=== PATIENT | female | born 1955 | race Caucasian/White ===

== ENCOUNTER 2022-03-06 15:37 | Inpatient (IN) ==
[2022-03-06] MEDS ORDERED: IOPAMIDOL 100 ML BOTTLE IV ONE (15:38)
[2022-03-06] MEDS ORDERED: ACETAMINOPHEN 325 MG TABLET PO ONE (15:49)
[2022-03-06 16:05] LABS: POC Calcium, Ionized 1.02 (1.16-1.32); POC Creatinine 0.6 (0.6-1.2)
[2022-03-06] MEDS ORDERED: morphine 4 MG/ML VIAL IV ONE (16:07)
[2022-03-06] MEDS ORDERED: 0.9 % SODIUM CHLORIDE 1,000 ML IV ONE (16:08)
[2022-03-06] MEDS ORDERED: ONDANSETRON 4 MG/2 ML VIAL IV ONE (16:12)
[2022-03-06] MEDS ORDERED: ONDANSETRON 4 MG/2 ML VIAL ONE (16:24)
[2022-03-06 16:45] LABS: Hematocrit 40.4 % (34.1-44.9); Hemoglobin 13.5 g/dL (11.2-15.7); Mean Cell Volume 88.6 fL (80.0-100.0); Mean Corpuscular HGB Conc 33.4 g/dL (31.0-36.0); Mean Platelet Volume 10.4 fL (7.4-10.4); Platelet Count 170 K/mcL (140-440); RBC 4.56 M/mcL (3.59-5.38); Red Cell Distribution Width 12.2 % (11.5-14.5); WBC 8.2 K/mcL (4.5-11.0)
[2022-03-06 17:17] LABS: Basophils % (Manual) 2 % (0-2); Lymphocytes % 18 % (15-49); Monocytes % (Manual) 6 % (1-12); Platelet Estimate NORMAL (Normal); RBC Morphology NORMAL (Normal); Segmented Neutrophils % 74 % (38-78)
--- NOTE | 2022-03-06 17:19 | Emergency Department Note ---
Chest Pain HPI General Chief Complaint: Chest Pain Stated Complaint: fall Time Seen by Provider: 03/06/22 15:44 Source: patient Mode of arrival: ambulatory History of Present Illness HPI Narrative: 66-year-old female with a history of T2DM and radiculoplexus neuropathy presents with acute onset chest pain and unwitnessed syncopal event that occurred at 11:00 this morning. She states she was in her usual state of health and was kneeling forward and passed out. She is unclear if she hit her head, but now has a headache. She also endorses some upper thoracic back pain and some low bilateral lumbar back pain. She has never had a syncopal event. She has no history of heart disease. She does have type 2 diabetes with poor control. [id number] blood glucose is 412. Related Data Home Medications Medication Instructions Recorded Confirmed baclofen 10 mg tablet 1 tab PO TID 03/06/22 03/06/22 duloxetine 60 mg capsule,delayed 1 cap PO QDAY 03/06/22 03/06/22 release gabapentin 300 mg capsule 300 mg PO TID 03/06/22 03/06/22 hydrocodone 10 mg-acetaminophen 1 tab PO 5XD 03/06/22 03/06/22 325 mg tablet insulin aspart U-100 100 unit/mL 10 unit subcut TID 03/06/22 03/06/22 (3 mL) subcutaneous pen (Novolog Flexpen U-100 Insulin aspart) insulin detemir U-100 100 unit/mL 80 unit subcut HS 03/06/22 03/06/22 (3 mL) subcutaneous pen (Levemir FlexTouch U-100 Insulin) losartan 50 mg tablet 1 tab PO QDAY 03/06/22 03/06/22 pravastatin 20 mg tablet 1 tab PO HS 03/06/22 03/06/22 tramadol 50 mg tablet 1 tab PO TIDP 03/06/22 03/06/22 Allergies Allergy/AdvReac Type Severity Reaction Status Date / Time codeine Allergy Unknown Unknown Verified 03/06/22 15:41 Review of Systems ROS ROS Narrative: Narrative: All systems ED: reviewed and negative except as stated. 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) Chronic pain (Chronic) Encounter for medication refill (Chronic) Laceration (Chronic) Medical History Asthma Benign essential hypertension Chronic pain Diabetes mellitus Encounter for medication refill Laceration Lymphedema Pain in lower limb 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 Pleasant and conversant. HEENT: PERRL, EOMI, normocephalic. Dry mucous membranes. Normal facies and normal dentition. Chest: Symmetric, she is painful to palpation of the anterior left chest. Back: Tender to palpation of the mid thoracic spine and paraspinals. Respiratory: Lungs clear to auscultation bilaterally. No respiratory distress. Unlabored breathing. Heart: Regular rate and rhythm, no murmurs/clicks/rubs. Abdomen: Non-tender, Non distended, normal bowel tones. No organomegaly. Extremities: Warm and well perfused. No edema. DP 2+ bilaterally. No venous stasis. Neuro: No focal deficits. Cranial nerves II-XII grossly normal. Skin: Warm dry, no rashes or lesions, no cyanosis. Psych: Normal mood and affect Heme/Lymph: No abnormal bruising Course Course Course Narrative: 66-year-old female presents for syncopal event and acute onset chest pain Reevaluation(s) Reevaluation #1: Obtain EKG, troponin, basic labs, CTA of the chest to rule out PE or dissection Reevaluation #2: EKG shows normal sinus rhythm no acute ST segment deviations to suggest an ischemia. QTC is 423 ms. POC troponin is undetectable CTA of the chest is negative for PE or dissection. No infiltrates. Right lower lobe bronchitis is noted. No evidence of compression fractures of the thoracic or lower cervical spine. Labs are unremarkable Reevaluation #3: Patient is now noted to be hypoxic with 84% oxygen saturations on room air. This corrects to 95% with 2 L nasal cannula. This is a new oxygen requirement for her. The patient takes her pain medications for her neuropathy 4 times a day. We will give her hydrocodone and gabapentin now. Given the patient's new oxygen requirement she will likely need admission for further evaluation management, and treatment for her COVID-19 infection. Vital Signs Vital signs: Vital Signs Temperature 99.4 F H 03/06/22 15:39 Pulse Rate 87 03/06/22 15:39 Respiratory Rate 16 03/06/22 15:39 Blood Pressure 170/73 03/06/22 15:39 Oxygen Delivery Method 03/06/22 15:39 Temperature 99.4 F H 03/06/22 15:39 Pulse Rate 76 03/06/22 18:35 Respiratory Rate 23 H 03/06/22 18:35 Blood Pressure 151/67 03/06/22 17:32 Pulse Oximetry (%) 97 03/06/22 18:35 Oxygen Delivery Method 03/06/22 17:57 Oxygen Flow Rate (L/min) 2 03/06/22 17:57 [facility] MDM Narrative Medical decision making narrative: COVID-19 infection Hypoxia with new oxygen requirement CT of the chest was negative for acute pathology. Patient had no evidence of thoracic compression fractures. Pain is improved with intramuscular Toradol. Patient continues to be hypoxic requiring 2 L via nasal cannula to keep her sats greater than 92%. I reached out to the hospitalist who has accepted the patient for admission. Lab Data Result diagrams: 03/06/22 15:58 Labs: Lab Results 03/06/22 03/06/22 03/06/22 Range/Units 15:58 16:02 16:04 WBC 8.2 (4.5-11.0) K/mcL RBC 4.56 (3.59-5.38) M/mcL Hgb 13.5 (11.2-15.7) g/dL Hct 40.4 (34.1-44.9) % POC Hct 41.0 (36-48) MCV 88.6 (80.0-100.0) fL MCH 29.6 (26.0-34.0) pg MCHC 33.4 (31.0-36.0) g/dL RDW 12.2 (11.5-14.5) % Plt Count 170 (140-440) K/mcL MPV 10.4 (7.4-10.4) fL Seg Neutrophils % 74 (38-78) % Lymphocytes % 18 (15-49) % Monocytes % (Manual) 6 (1-12) % Basophils % (Manual) 2 (0-2) % Platelet Estimate Normal (Normal) RBC Morphology Normal (Normal) POC Sodium 131 L (133-145) POC Potassium 4.0 (3.3-5.1) POC Chloride 92 L (96-108) POC Total CO2 29.0 (22-30) POC BUN 13 (6-20) POC Creatinine 0.6 (0.6-1.2) POC Glucose 412 H (70-105) POC WB Ioniz Calcium 1.02 L (1.16-1.32) POC Troponin I 0 L (0.02-0.08) ED POC Tests ED POC Tests: [place] - SARS Antigen Positive Discharge Plan Patient/Caregiver Discharge Instructions Pt seen by ARMATURE WINDER/PA only: Yes Clinical Impression: COVID-19 virus infection, Hypoxia Patient Disposition: Xfer As Inpt ([facility]) Condition: Fair Follow up with: Maykel Colón [Primary Care Provider] - Prescriptions: No Action hydrocodone-acetaminophen 10-325 mg tablet 1 tab PO 5XD tramadol 50 mg tablet 1 tab PO TIDP baclofen 10 mg tablet 1 tab PO TID gabapentin 300 mg capsule 300 mg PO TID pravastatin 20 mg tablet 1 tab PO HS insulin aspart U-100 [Novolog Flexpen U-100 Insulin] 100 unit/mL (3 mL) ins ulin pen 10 unit subcut TID duloxetine 60 mg capsule,delayed release(DR/EC) 1 cap PO QDAY Levemir FlexTouch U-100 Insuln 100 unit/mL (3 mL) insulin pen 80 unit subcut HS losartan 50 mg tablet 1 tab PO QDAY
--- NOTE | 2022-03-06 17:26 | Cat Scan Report ---
History: Fell on chest injury, evaluate for aortic dissection TECHNIQUE: Following injection of intravenous nonionic contrast the patient was imaged during the arterial phase from the thoracic inlet through the iliac crest. Sagittal, coronal and axial MIPS images were created. The radiation exposure was limited using dose reduction technology. FINDINGS: Patient has a goiter. This had been evaluated by ultrasound on 03/19/19 and has not grossly changed. The aorta is normal in caliber. There is no aneurysm or dissection. There is minimal plaque formation in the aortic arch. There are couple small calcifications in left anterior descending coronary artery. Pulmonary artery is normal with no emboli or dilatation. The heart is normal in size and contour. No pneumothorax, pleural or pericardial effusion are present. There are small linear bands of scar or discoid atelectasis in both lung bases. The lungs are otherwise clear. There is no emphysema. Moderate bronchial wall thickening is present in the basilar segments of the right lower lobe. No endobronchial lesion is seen. There is a 1.2 x 1.5 cm lymph node in the pretracheal retrocaval space. This is nonspecific. Small lymph nodes measuring less than 7 mm are present in the right hilum. The common hepatic duct and proximal common bile duct are dilated measuring up to 1.4 cm. The gallbladder is outside of the field of view and I cannot determine whether or not the patient still has a gallbladder. There is a bulbous configuration of the left lobe of liver. The visualized portion of the liver is relatively homogeneous. Bone windows show no fracture. There is arthritis in the cervical and thoracic spine. IMPRESSION: No evidence of acute chest injury Normal aorta and pulmonary arteries Bronchitis in the right lower lobe Dilated extrahepatic bile ducts Deirdre Cox was called with the report Interpreted and Authenticated by: Rafael Jones 03/06/22
[2022-03-06] MEDS ORDERED: KETOROLAC 30 MG/ML VIAL IV ONE (17:29)
--- NOTE | 2022-03-06 17:43 | XRay Report ---
HISTORY: Fell, chest pain FINDINGS: The lungs are clear and well-expanded. No pneumothorax or pleural effusion are present. Heart size is normal. Aorta is moderate mildly tortuous. There is no evidence of mediastinal hemorrhage. No fracture is detected. There are clips in the left axilla. Comparison with the prior x-ray done on 08/16/21 shows no change. IMPRESSION: Normal exam Interpreted and Authenticated by: Rafael Jones 03/06/22
--- NOTE | 2022-03-06 18:12 | EKG ---
[facility] Test Date: 2022-03-06 Pat Name: Aria Kaur Department: ED Room: Gender: Female [employer]: HS : 1955 Requested By: Miguel A Mcarthur Order Number: [id number] Reading MD: Rubens Monson Measurements Intervals [place] Rate: 82 P: 41 SD: 194 QRS: 71 QRSD: 100 T: 32 QT: 362 QTc: 423 Interpretive Statements Sinus rhythm Probable left atrial enlargement Borderline low voltage, extremity leads Abnormal R-wave progression, late transition Electronically Signed On 03-06-2022 18:12:03 PDT by Rubens Monson /store/M0/[id number].pdf
[2022-03-06] MEDS ORDERED: HYDROcodone/APAP 10/325MG TABLET PO ONE (18:20)
[2022-03-06] MEDS ORDERED: GABAPENTIN 300 MG CAPSULE PO ONE ×2 (18:21→22:56)
--- NOTE | 2022-03-06 18:27 | Cat Scan Report ---
History: Syncope, fell, hit head, headache TECHNIQUE: The brain was imaged without contrast in axial plane at 2.5 mm intervals. Sagittal and coronal reformats were created. The radiation exposure was limited using dose reduction technology. There is contrast in the vessels following the preceding chest CT with contrast. There is mild frontal lobe atrophy. There is no intracranial hemorrhage, infarct, edema or mass. There is a prominent CSF filled perivascular lacunar space along the inferior border of the right basal ganglia. There is mild frontal lobe atrophy. No abnormal extra-axial fluid collection is present. The bone windows show no skull fracture. Mild mucosal thickening is seen along the riley of a few ethmoid air cells. IMPRESSION: Normal age-related degenerative changes and no acute head injury Deirdre Cox was called with report Interpreted and Authenticated by: Rafael Jones 03/06/22
[2022-03-06] MEDS ORDERED: INSULIN REGULAR, HUMAN 1 UNIT/0.01 ML UNIT SQ ONE (19:05)
--- NOTE | 2022-03-06 19:40 | Internal Med History&Physical ---
HPI History of Present Illness Patient information: Note initiated : 03/06/22 at 7:32 pm Service Date, if different from initiated Date: [] Patient: Aria Kaur a 66 y/o F admitted on for fall. Chief Complaint: [syncope] Chief complaint: syncope History of present illness: Ms. Kaur is a 66 year old F history of type 2 diabetes with radiculoplexus neuropathy, essential hypertensions, presenting with syncope. Last prior similar episode 2 years ago. Earlier today patient lost consciousness and fell when she was trying to walk between kitchen and living room. She then woke up by herself and call EMS to be sent to ER for further evaluations. When she woke up, she have experienced excruciating sharp constant substernal pain that radiates to her back. She is also complaining of shortness of breath in the pas t 4 days. She is complain of nonproductive cough. She is also complained of respiratory wheezings. She is having subjective fever chills and diaphoresis. She is having general weakness. Vital signs significant for oxygen desaturating to 80s on room air. She tested positive for COVID-pneumonia. Her blood sugar was also found to be elevated to 412 without acidosis or elevated anion gap. She was vaccinated x3 against COVID-pneumonia. Admission request was called for COVID-pneumonia as well as glycemia associated with type 2 diabetes. Constitutional Constitutional: Present fatigue and weakness; Absent chills, excessive sweating or fever(s) EENT Eyes: Absent blurry vision, change in vision, loss of vision or other visual disturbances Ears: Absent decreased hearing or tinnitus Nose, mouth and throat: Absent abnormal hearing, dry mouth, headache(s), nasal congestion or sore throat Cardiovascular Cardiovascular: Present chest pain; Absent chest pain at rest, edema, irregular heart rhythm or palpatations Respiratory Respiratory: Present cough, dyspnea and wheezing; Absent excessive phlegm production Gastrointestinal Gastrointestinal: Absent abdominal pain, constipation, diarrhea, nausea or vomiting Musculoskeletal Musculoskeletal: Absent back pain, deformity, limited range of motion, muscle cramps, muscle weakness or numbness Integumentary Integumentary: Absent lesions, rash or wounds Neurological Neurological: Absent focal weakness, headache(s) or numbness Psychiatric Psychiatric: Absent anxiety, depression or hallucinations PFSH PFSH All Active Problems (Updated 03/06/22 @ 19:42 by Henry Laboy MD) Syncope and collapse (Acute) Pneumonia due to COVID-19 virus (Acute) Hyperglycemia due to type 2 diabetes mellitus (Acute) Pain in lower limb (Chronic) Asthma (Chronic) Diabetes mellitus (Chronic) Benign essential hypertension (Chronic) Lymphedema (Chronic) 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) Chronic pain (Chronic) Encounter for medication refill (Chronic) Laceration (Chronic) Medical History Asthma Benign essential hypertension Chronic pain Diabetes mellitus Encounter for medication refill Laceration Lymphedema Pain in lower limb 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 Surgical History History of bilateral mastectomy Prophylactic History of hysterectomy Family History Family/Other Malignant neoplasm of liver Malignant carcinoid tumor of lung History of malignant neoplasm of kidney Social History (Updated 07/05/21 @ 14:51 by [place] Jose) marital status: unknown smoking status: Current every day smoker alcohol intake frequency: does not drink substance use type: does not use MEDS/ALLERGIES Home Medications and Allergies Home Medications Medication Instructions Recorded Confirmed Type baclofen 10 mg tablet 1 tab PO TID 03/06/22 03/06/22 History duloxetine 60 mg capsule,delayed 1 cap PO QDAY 03/06/22 03/06/22 History release gabapentin 300 mg capsule 300 mg PO TID 03/06/22 03/06/22 History hydrocodone 10 mg-acetaminophen 1 tab PO 5XD 03/06/22 03/06/22 History 325 mg tablet insulin aspart U-100 100 unit/mL 10 unit subcut TID 03/06/22 03/06/22 History (3 mL) subcutaneous pen (Novolog Flexpen U-100 Insulin aspart) insulin detemir U-100 100 unit/mL 80 unit subcut HS 03/06/22 03/06/22 History (3 mL) subcutaneous pen (Levemir FlexTouch U-100 Insulin) losartan 50 mg tablet 1 tab PO QDAY 03/06/22 03/06/22 History pravastatin 20 mg tablet 1 tab PO HS 03/06/22 03/06/22 History tramadol 50 mg tablet 1 tab PO TIDP 03/06/22 03/06/22 History Allergies Allergy/AdvReac Type Severity Reaction Status Date / Time codeine Allergy Unknown Unknown Verified 03/06/22 15:41 EXAM Constitutional Vitals: Temp Pulse Resp BP Pulse Ox O2 Del Method O2 Flow Rate 37.4 C H 76 23 H 151/67 97 2 03/06/22 15:39 03/06/22 18:35 03/06/22 18:35 03/06/22 17:32 03/06/22 18:35 03/06/22 17:57 03/06/22 17:57 General appearance: cooperative and no acute distress Head Head exam: Present atraumatic and normocephalic Eye Eye exam: Present EOMI and PERRL ENT ENT exam: Present mucous membranes moist, normal exam and normal external ear exam Additional comments: Nasal cannula in place Neck Neck exam: Present normal inspection; Absent lymphadenopathy, tenderness or thyromegaly Respiratory Respiratory exam: Absent accessory muscle use, respiratory distress or wheezes Cardiovascular Cardiovascular exam: Present normal rate and rhythm; Absent JVD GI/Abdominal GI/Abdominal exam: Present normal bowel sounds and soft; Absent organomegaly or tenderness Extremities Exam Extremities exam: Present full ROM, normal capillary refill and normal inspection; Absent tenderness Neurological Exam Neurological exam: Present alert, CN II-XII intact and oriented X3; Absent motor sensory deficit Psychiatric Psychiatric exam: Present normal affect and normal mood; Absent anxious or depressed Skin Skin exam: Present dry and intact DATA Data Completed and Pending Labs: Labs from last 24 hours 03/06/22 03/06/22 03/06/22 16:04 16:02 15:58 WBC 8.2 RBC 4.56 Hgb 13.5 Hct 40.4 POC Hct 41.0 MCV 88.6 MCH 29.6 MCHC 33.4 RDW 12.2 Plt Count 170 MPV 10.4 Seg Neutrophils % 74 Lymphocytes % 18 Monocytes % (Manual) 6 Basophils % (Manual) 2 Platelet Estimate Normal RBC Morphology Normal POC Sodium 131 L POC Potassium 4.0 POC Chloride 92 L POC Total CO2 29.0 POC BUN 13 POC Creatinine 0.6 POC Glucose 412 H POC WB Ioniz Calcium 1.02 L POC Troponin I 0 L A/P Assessment and plan (1) Hyperglycemia due to type 2 diabetes mellitus: Status: Acute (2) Benign essential hypertension: Status: Chronic (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 CoVID pneumonia: Inpatient med surg telemetry Isolation: airborne and contact Supplemental oxygen titrate to achieve spo2>=92% Remdesivir Dexamethasone Tylenol DuoNEB Robitussin DM Blood culture Inflammatory markers cbc w/ auto diff in the morning to trend WBC 2. Hyperglycemia with T2DM with radiculopathy: HgA1c Lantus 80 unit HS Novolog 10 unit TID AC SSI AC HS Accu Chek AC HS Hypoglycemia protocol Diabetic diet Gabapentin [place] Tramadol 3. Syncope: Likely secondary to #1 and #2, treat those respectively, see above Physical therapy Occupational therapy 4. Essential hypertension: Losartan GI ppx: not currently indicated DVT ppx: Lovenox Code status: Full Prognosis: guarded Disposition: Inpatient med surg telemetry; PT OT Time Spent With Patient Time: Total time spent is greater than 50% in coordination of care (as documented) at patient's floor/unit and/or counseling patient: Total time spent with greater than 50% in coordination of care (as documented) at patient's floor/unit and/or counseling patient:: 50 - 70 minutes
[2022-03-06] MEDS ORDERED: traMADol 50 MG TABLET PO PRN (19:48)
[2022-03-06] MEDS ORDERED: HYDROcodone/APAP 10/325MG TABLET PO SCH (20:00)
[2022-03-06] MEDS ORDERED: ACETAMINOPHEN 325 MG TABLET PO PRN (20:33)
[2022-03-06] MEDS ORDERED: ONDANSETRON 4 MG/2 ML VIAL IV PRN (20:33)
[2022-03-06] MEDS ORDERED: guaiFENesin/DEXTROMETHORPHAN ORAL SOL PO PRN (20:33)
[2022-03-06] MEDS ORDERED: DEXTROSE 31 GM ORAL.SUSP PO PRN (20:33)
[2022-03-06] MEDS ORDERED: IPRATROPIUM/ALBUTEROL 3 ML AMPUL.NEB NEB PRN (20:33)
[2022-03-06] MEDS ORDERED: DEXTROSE 50% 50 ML VIAL IV PRN (20:33)
[2022-03-06] MEDS ORDERED: hydrALAZINE 20 MG/ML VIAL IV PRN (20:33)
[2022-03-06] MEDS ORDERED: traZODone HCL 50 MG TABLET PO PRN (20:33)
[2022-03-06] MEDS ORDERED: GABAPENTIN 300 MG CAPSULE PO SCH (21:00)
[2022-03-06] MEDS: DOCUSATE SODIUM 100 MG CAPSULE PO SCH ×2 (21:00→22:10)
[2022-03-06] MEDS: SENNOSIDES 1 TABLET PO SCH ×2 (21:00→22:09)
[2022-03-06] MEDS ORDERED: REMDESIVIR 200 MG in 0.9 % SODIUM CHLORIDE 250 ML IV SCH (21:00)
[2022-03-06] MEDS: GABAPENTIN 300 MG CAPSULE PO SCH ×2 (21:00→22:55)
[2022-03-06] MEDS ORDERED: DEXAMETHASONE 4 MG TABLET PO SCH (21:10)
[2022-03-06] MEDS: 0.9 % SODIUM CHLORIDE 1,000 ML IV SCH (21:14)
[2022-03-06] MEDS: 0.9 % SODIUM CHLORIDE 10 ML SYRINGE IV SCH (21:15)
[2022-03-06] MEDS: INSULIN LISPRO 1 UNIT/0.01 ML UNIT SQ SCH (21:16)
[2022-03-06] MEDS: INSULIN GLARGINE, HUMAN 1 UNIT/0.01 ML SQ SCH (21:16)
[2022-03-06 21:19] LABS: Lactate Dehydrogenase 265 U/L (135-225)
[2022-03-06 21:29] LABS: INR 1.1 (0.9-1.1); Prothrombin Time 14.4 sec (11.9-14.5)
[2022-03-06 21:30] LABS: Ferritin 243.8 ng/mL (30.0-400.0)
[2022-03-06] MEDS: BACLOFEN 10 MG TABLET PO SCH (22:10)
[2022-03-06] MEDS: ATORVASTATIN 10 MG TABLET PO SCH (22:10)
[2022-03-06 22:19] LABS: Estimated Average Glucose(eAG) 346 mg/dL; Hemoglobin A1C 13.7 % Hgb (4.0-6.0)
[2022-03-06] MEDS ORDERED: GABAPENTIN 300 MG CAPSULE ONE (23:02)
[2022-03-07] MEDS ORDERED: HYDROcodone/APAP 10/325MG TABLET PO ONE (03:36)
[2022-03-07] MEDS: HYDROcodone/APAP 10/325MG TABLET PO SCH ×5 (03:44→23:58)
[2022-03-07] MEDS: 0.9 % SODIUM CHLORIDE 10 ML SYRINGE IV SCH ×3 (04:09→20:27)
[2022-03-07 06:58] LABS: Basophils # (Auto) 0.02 K/mcL (0.00-0.30); Basophils % (Auto) 0.4 % (0.0-2.0); Eosinophils # (Auto) 0.01 K/mcL (0.00-0.70); Eosinophils % (Auto) 0.2 % (0.0-7.0); Hematocrit 35.8 % (34.1-44.9); Hemoglobin 11.6 g/dL (11.2-15.7); Lymphocytes # (Auto) 1.21 K/mcL (1.50-4.80); Lymphocytes % (Auto) 21.6 % (15.5-49.0); Mean Cell Volume 91.6 fL (80.0-100.0); Mean Corpuscular HGB Conc 32.4 g/dL (31.0-36.0); Mean Platelet Volume 10.1 fL (7.4-10.4); Monocytes % (Auto) 5.3 % (1.0-12.0); Platelet Count 149 K/mcL (140-440); RBC 3.91 M/mcL (3.59-5.38); Red Cell Distribution Width 12.2 % (11.5-14.5); WBC 5.6 K/mcL (4.5-11.0)
[2022-03-07 07:23] LABS: ALT/SGPT 32 U/L (<40); AST/SGOT 32 U/L (<32); Albumin 3.3 gm/dL (3.2-5.2); Albumin/Globulin Ratio 1.2 (1.0-2.3); Alkaline Phosphatase 60 U/L (39-117); Bilirubin,Total 0.2 mg/dL (0.1-1.0); Blood Urea Nitrogen 19 mg/dL (8-23); Calcium 7.7 mg/dL (8.6-10.4); Carbon Dioxide 24 mmol/L (22-30); Chloride 95 mmol/L (96-108); Globulin 2.7 gm/dL (2.2-3.7); Glomerular Filtration Rate 89; Glucose 346 mg/dL (70-105); Phosphorous 3.5 mg/dL (2.5-4.5)
[2022-03-07] MEDS: INSULIN LISPRO 1 UNIT/0.01 ML UNIT SQ SCH ×7 (08:22→20:33)
[2022-03-07] MEDS: ENOXAPARIN 40 MG/0.4 ML SYRINGE SQ SCH (08:23)
[2022-03-07] MEDS: BACLOFEN 10 MG TABLET PO SCH ×3 (08:24→20:29)
[2022-03-07] MEDS: DULoxetine 30 MG CAPSULE PO SCH (08:24)
[2022-03-07] MEDS: traMADol 50 MG TABLET PO SCH ×3 (08:25→20:29)
[2022-03-07] MEDS: DEXAMETHASONE 4 MG TABLET PO SCH (08:26)
[2022-03-07] MEDS: LOSARTAN 50 MG TABLET PO SCH (08:26)
[2022-03-07] MEDS: GABAPENTIN 300 MG CAPSULE PO SCH ×4 (08:26→20:29)
[2022-03-07] MEDS: DOCUSATE SODIUM 100 MG CAPSULE PO SCH ×2 (08:26→20:26)
[2022-03-07] MEDS ORDERED: DEXTROSE 31 GM ORAL.SUSP PO PRN (09:11)
[2022-03-07] MEDS ORDERED: DEXTROSE 50% 50 ML VIAL IV PRN (09:11)
--- NOTE | 2022-03-07 09:11 | Internal Med Progress Note ---
SUBJECTIVE Subjective Patient information: Note initiated : 03/07/22 at 9:08 am Service Date, if different from initiated Date: [] Patient: Aria Kaur a 66 y/o F admitted on 03/06/22 for fall. Chief Complaint: [] Interval history: Ms. Kaur is a 66 year old F history of type 2 diabetes with radiculoplexus neuropathy, essential hypertensions, presenting with syncope. Last prior similar episode 2 years ago. Earlier today patient lost consciousness and fell when she was trying to walk between kitchen and living room. She then woke up by herself and call EMS to be sent to ER for further evaluations. When she woke up, she have experienced excruciating sharp constant substernal pain that radiates to her back. She is also complaining of shortness of breath in the past 4 days. She is complain of nonproductive cough. She is also complained of respiratory wheezings. She is having subjective fever chills and diaphoresis. She is having general weakness. Vital signs significant for oxygen desaturating to 80s on room air. She tested positive for COVID-pneumonia. Her blood sugar was also found to be elevated to 412 without acidosis or elevated anion gap. She was vaccinated x3 against COVID-pneumonia. Admission request was called for COVID-pneumonia as well as glycemia associated with type 2 diabetes. 8: Afebrile overnight. Patient is still on 2 L/min of supplemental oxygen. Fasting sugar 346 this morning. Cultures no growth today. Patient is still committing of same degree of shortness of breath. She is coming of nonproductive cough. She is complaining of wheezings. She is coming of diaphoresis. Denies fever or chills. She is coming of general body weakness. Continue supplemental oxygen's, remdesivir, dexamethasone for COVID-pneumonia. Continue aggressive insulin therapy for hyperglycemia associated with type 2 diabetes. Continue physical therapy and occupational therapy evaluation and treatments. Constitutional Vitals: Vital Signs Temp Pulse Resp BP Pulse Ox O2 Del Method O2 Flow Rate 36.9 C 66 20 147/80 92 2 03/07/22 08:00 03/07/22 08:00 03/07/22 08:00 03/07/22 08:00 03/07/22 08:00 03/07/22 08:00 03/07/22 08:00 Period Temp Pulse Resp BP Sys/Meléndez Pulse Ox O2 Del Method O2 Flow Rate Last 24 Hr 36.6 C-37.4 C 66-87 16-25 95-170/62-92 90-97 Nasal Cannula- Room Air 2-84 Intake and Output 03/06/22 03/07/22 03/07/22 21:59 05:59 13:59 Intake Total 730 1000 Output Total 150 400 Balance 580 600 Weight 84.822 kg Intake & Output: Intake & Output 03/06/22 03/07/22 03/07/22 21:59 05:59 13:59 Intake Total 730 1000 Output Total 150 400 Balance 580 600 Weight 84.822 kg Intake: IV 250 1000 Sodium Chloride 0.9% 1,000 ml @ 1000 Wide Open IV [facility] Rx#: [id number] Veklury 200 mg In Sodium 250 Chloride 0.9% 250 ml @ 500 mls/ hr IV 2100 JOANNE Rx#:[id number] Oral 480 Output: Void Amount 150 400 Other: Urine Appearance Clear Urine Color Bright Yellow Dark Yellow Urine Odor Normal Strong # Voids 1 Head Head exam: Present atraumatic and normal inspection Eye Eye exam: Present normal appearance ENT ENT exam: Present mucous membranes moist, normal exam and normal external ear exam Additional comments: Nasal cannula in place Neck Neck exam: Present normal inspection Respiratory Respiratory exam: Present normal respiratory exam Cardiovascular Cardiovascular exam: Present normal rate and rhythm GI/Abdominal GI/Abdominal exam: Present normal bowel sounds Back Exam Back exam: Present normal inspection Neurological Exam Neurological exam: Present alert and oriented X3 Skin Skin exam: Present intact and warm OBJ DATA Labs CBC & Chem 7: 03/07/22 06:21 03/07/22 06:21 Labs: Abnormal Lab Results 03/07/22 03/07/22 03/06/22 06:21 06:21 16:04 Lymph # (Auto) 1.21 L POC Sodium Sodium 129 L POC Chloride Chloride 95 L Glucose 346 H POC Glucose Hemoglobin A1c Calcium 7.7 L POC WB Ioniz Calcium AST 32 H Lactate Dehydrogenase C-Reactive Protein Procalcitonin POC Troponin I 0 L 03/06/22 03/06/22 03/06/22 16:02 15:58 15:58 Lymph # (Auto) POC Sodium 131 L Sodium POC Chloride 92 L Chloride Glucose POC Glucose 412 H Hemoglobin A1c 13.7 H Calcium POC WB Ioniz Calcium 1.02 L AST Lactate Dehydrogenase 265 H C-Reactive Protein 1.00 H Procalcitonin 0.13 H POC Troponin I Meds: Medications Acetaminophen (Acetaminophen 325 Mg Tablet) 650 mg PO Q6HP PRN; Protocol PRN Reason: Per Pain Protocol/Fever > 101 Hydrocodone Bitart/Acetaminophen (Hydrocodone/Apap 10/325mg Tablet) 1 tab PO 03,08,12,17,22 [facility]; Protocol Last Admin: 03/07/22 08:24 Dose: 1 tab Albuterol/Ipratropium (Ipratropium/Albuterol 3 Ml Ampul.Neb) 3 ml NEB Q4HRT PRN PRN Reason: Wheezing Atorvastatin Calcium (Atorvastatin 10 Mg Tablet) 5 mg PO HS [facility] Last Admin: 03/06/22 22:10 Dose: 5 mg Baclofen (Baclofen 10 Mg Tablet) 10 mg PO TID [facility] Last Admin: 03/07/22 08:24 Dose: 10 mg Dexamethasone (Dexamethasone 4 Mg Tablet) 6 mg PO DAILY [facility] Last Admin: 03/07/22 08:26 Dose: 6 mg Dextrose (Dextrose 50% 50 Ml Vial) 0 ml IV UD PRN PRN Reason: Per Sliding Scale Diagnostic Test (Pha) (Accu-Chek 1 Each Strip) 1 each FS ACHS [facility] Last Admin: 03/07/22 08:22 Dose: 1 each Docusate Sodium (Docusate Sodium 100 Mg Capsule) 100 mg PO BID [facility] Last Admin: 03/07/22 08:26 Dose: Not Given Duloxetine HCl (Duloxetine 30 Mg Capsule) 60 mg PO QDAY [facility] Last Admin: 03/07/22 08:24 Dose: 60 mg Enoxaparin Sodium (Enoxaparin 40 Mg/0.4 Ml Syringe) 40 mg SQ DAILY [facility] Last Admin: 03/07/22 08:23 Dose: 40 mg Gabapentin (Gabapentin 300 Mg Capsule) 900 mg PO QID [facility] Last Admin: 03/07/22 08:26 Dose: 900 mg Glucose (Dextrose 31 Gm Oral.Susp) 15 gm PO PRN PRN PRN Reason: Hypoglycemia Guaifenesin (Guaifenesin/Dextromethorphan Oral Brenda) 10 ml PO Q4HP PRN PRN Reason: Cough Hydralazine HCl (Hydralazine 20 Mg/Ml Vial) 10 mg IV Q4-6HP PRN PRN Reason: Hypertension Sodium Chloride (Sodium Chloride 0.9%) 1,000 mls @ 100 mls/hr IV .Q10H [facility] Last Admin: 03/06/22 21:14 Dose: 100 mls/hr REMDESIVIR 100 mg/ Sodium (Chloride) 250 mls @ 500 mls/hr IV Q24H [facility] Stop: 03/09/22 14:59 Insulin Glargine (Insulin Glargine, Human 1 Unit/0.01 Ml) 80 unit SQ HS [facility] Last Admin: 03/06/22 21:16 Dose: 80 units Insulin Human Lispro (Insulin Lispro 1 Unit/0.01 Ml Unit) 10 unit SQ TIDCC [facility] Last Admin: 03/07/22 08:22 Dose: 10 units Insulin Human Lispro (Insulin Lispro 1 Unit/0.01 Ml Unit) 0 unit SQ ACHS [facility]; Protocol Last Admin: 03/07/22 08:23 Dose: 12 units Losartan Potassium (Losartan 50 Mg Tablet) 50 mg PO QDAY [facility] Last Admin: 03/07/22 08:26 Dose: 50 mg Ondansetron HCl (Ondansetron 4 Mg/2 Ml Vial) 4 mg IV Q6HP PRN PRN Reason: Nausea And Vomiting Senna (Sennosides 1 Tablet) 2 tab PO [facility] Last Admin: 03/06/22 22:09 Dose: 2 tab Sodium Chloride (0.9 % Sodium Chloride 10 Ml Syringe) 10 ml IV Q8 [facility] Last Admin: 03/07/22 04:09 Dose: Not Given Tramadol HCl (Tramadol 50 Mg Tablet) 50 mg PO 08,12,20 [facility] Last Admin: 03/07/22 08:25 Dose: 50 mg Trazodone HCl (Trazodone Hcl 50 Mg Tablet) 25 mg PO HSP PRN PRN Reason: Insomnia A/P Assessment and plan (1) Hyperglycemia due to type 2 diabetes mellitus: Status: Acute (2) Benign essential hypertension: Status: Chronic (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 CoVID pneumonia: Inpatient med surg telemetry Isolation: airborne and contact Supplemental oxygen titrate to achieve spo2>=92% Remdesivir Dexamethasone Tylenol DuoNEB Robitussin DM Blood culture, no growth to date Inflammatory markers cbc w/ auto diff in the morning to trend WBC 2. Hyperglycemia with T2DM with radiculopathy: HgA1c 13.7 Lantus 80 unit HS Novolog 10 unit TID AC SSI AC HS Accu Chek AC HS Hypoglycemia protocol Diabetic diet Gabapentin [place] Tramadol 3. Syncope: Likely secondary to #1 and #2, treat those respectively, see above Physical therapy Occupational therapy 4. Essential hypertension: Losartan GI ppx: not currently indicated DVT ppx: Lovenox Code status: Full Prognosis: guarded Disposition: Inpatient med surg telemetry; PT OT Time Spent With Patient Time: Total time spent is greater than 50% in coordination of care (as documented) at patient's floor/unit and/or counseling patient: Total time spent with greater than 50% in coordination of care (as documented) at patient's floor/unit and/or counseling patient:: 35 - 50 minutes
[2022-03-07] MEDS: 0.9 % SODIUM CHLORIDE 1,000 ML IV SCH (11:26)
[2022-03-07] MEDS ORDERED: INSULIN LISPRO 1 UNIT/0.01 ML UNIT SQ SCH (11:30)
[2022-03-07] MEDS: REMDESIVIR 100 MG in 0.9 % SODIUM CHLORIDE 250 ML IV SCH (16:04)
[2022-03-07] MEDS: SENNOSIDES 1 TABLET PO SCH (20:25)
[2022-03-07] MEDS: ATORVASTATIN 10 MG TABLET PO SCH (20:28)
[2022-03-07] MEDS: INSULIN GLARGINE, HUMAN 1 UNIT/0.01 ML SQ SCH (20:33)
[2022-03-07] MEDS ORDERED: GABAPENTIN 300 MG CAPSULE PO SCH (22:30)
[2022-03-08] MEDS: HYDROcodone/APAP 10/325MG TABLET PO SCH ×5 (02:56→21:56)
[2022-03-08] MEDS: 0.9 % SODIUM CHLORIDE 10 ML SYRINGE IV SCH ×3 (06:30→21:59)
[2022-03-08] MEDS: GABAPENTIN 300 MG CAPSULE PO SCH ×4 (08:01→21:54)
[2022-03-08] MEDS: DOCUSATE SODIUM 100 MG CAPSULE PO SCH ×2 (08:01→21:58)
[2022-03-08] MEDS: DEXAMETHASONE 4 MG TABLET PO SCH (08:01)
[2022-03-08] MEDS: BACLOFEN 10 MG TABLET PO SCH ×3 (08:01→21:55)
[2022-03-08] MEDS: LOSARTAN 50 MG TABLET PO SCH (08:01)
[2022-03-08] MEDS: traMADol 50 MG TABLET PO SCH ×3 (08:02→21:55)
[2022-03-08] MEDS: DULoxetine 30 MG CAPSULE PO SCH (08:03)
[2022-03-08] MEDS: INSULIN LISPRO 1 UNIT/0.01 ML UNIT SQ SCH ×7 (08:03→22:04)
[2022-03-08] MEDS: ENOXAPARIN 40 MG/0.4 ML SYRINGE SQ SCH (08:04)
--- NOTE | 2022-03-08 11:41 | Internal Med Progress Note ---
SUBJECTIVE Subjective Patient information: Note initiated : 03/08/22 at 11:40 am Service Date, if different from initiated Date: [] Patient: Aria Kaur a 66 y/o F admitted on 03/06/22 for fall. Chief Complaint: [] Principal diagnosis: Failure to thrive Interval history: Ms. Kaur is a 66 year old F history of type 2 diabetes with radiculoplexus neuropathy, essential hypertensions, presenting with syncope. Last prior similar episode 2 years ago. Earlier today patient lost consciousness and fell when she was trying to walk between kitchen and living room. She then woke up by herself and call EMS to be sent to ER for further evaluations. When she woke up, she have experienced excruciating sharp constant substernal pain that radiates to her back. She is also complaining of shortness of breath in the past 4 days. She is complain of nonproductive cough. She is also complained of respiratory wheezings. She is having subjective fever chills and diaphoresis. She is having general weakness. Vital signs significant for oxygen desaturating to 80s on room air. She tested positive for COVID-pneumonia. Her blood sugar was also found to be elevated to 412 without acidosis or elevated anion gap. She was vaccinated x3 against COVID-pneumonia. Admission request was called for COVID-pneumonia as well as glycemia associated with type 2 diabetes. 8: Afebrile overnight. Patient is still on 2 L/min of supplemental oxygen. Fasting sugar 346 this morning. Cultures no growth today. Patient is still committing of same degree of shortness of breath. She is coming of nonproductive cough. She is complaining of wheezings. She is coming of diaphoresis. Denies fever or chills. She is coming of general body weakness. Continue supplemental oxygen's, remdesivir, dexamethasone for COVID-pneumonia. Continue aggressive insulin therapy for hyperglycemia associated with type 2 diabetes. Continue physical therapy and occupational therapy evaluation and treatments. 03/08: The patient is doing well. She denies any respiratory complaints. She is able to ambulate around her room. Discussed the case with the RN. Discussed disposition which remains a concern. Constitutional Vitals: Vital Signs Temp Pulse Resp BP Pulse Ox O2 Del Method O2 Flow Rate 97.9 F 61 20 147/74 92 2 03/08/22 08:00 03/08/22 08:00 03/08/22 08:00 03/08/22 08:00 03/08/22 08:00 03/08/22 08:00 03/08/22 08:00 Period Temp Pulse Resp BP Sys/Meléndez Pulse Ox O2 Del Method O2 Flow Rate Last 24 Hr 96.5 F-98.2 F 20-66 16-68 120-147/60-76 90-97 Nasal Cannula- Nasal Cannula 2-2 Intake and Output 03/07/22 03/08/22 03/08/22 21:59 05:59 13:59 Intake Total 490 200 Output Total 1175 1250 200 Balance -685 -1050 -200 Weight 82.554 kg Intake & Output: Intake & Output 03/07/22 03/08/22 03/08/22 21:59 05:59 13:59 Intake Total 490 200 Output Total 1175 1250 200 Balance -685 -1050 -200 Weight 82.554 kg Intake: IV 250 Veklury 100 mg In Sodium 250 Chloride 0.9% 250 ml @ 500 mls/ hr IV Q24H [facility] Rx#:[id number] Oral 240 200 Output: Void Amount 1175 1250 200 Other: Meal Dinner Percent of Meal Consumed 50% Feeding Ability Independent Urine Appearance Clear Clear Urine Color Bright Yellow Bright Yellow Straw Urine Odor Strong Head Head exam: Present atraumatic and normal inspection Eye Eye exam: Present normal appearance ENT ENT exam: Present mucous membranes moist, normal exam and normal external ear exam Neck Neck exam: Present normal inspection Respiratory Respiratory exam: Present normal respiratory exam Cardiovascular Cardiovascular exam: Present normal rate and rhythm GI/Abdominal GI/Abdominal exam: Present normal bowel sounds Back Exam Back exam: Present normal inspection Neurological Exam Neurological exam: Present alert and oriented X3 Skin Skin exam: Present intact and warm OBJ DATA Labs CBC & Chem 7: 03/07/22 06:21 03/07/22 06:21 Labs: Abnormal Lab Results 03/07/22 03/07/22 03/06/22 06:21 06:21 16:04 Lymph # (Auto) 1.21 L POC Sodium Sodium 129 L POC Chloride Chloride 95 L Glucose 346 H POC Glucose Hemoglobin A1c Calcium 7.7 L POC WB Ioniz Calcium AST 32 H Lactate Dehydrogenase C-Reactive Protein Procalcitonin POC Troponin I 0 L 07/03/06/22 03/06/22 16:02 15:58 15:58 Lymph # (Auto) POC Sodium 131 L Sodium POC Chloride 92 L Chloride Glucose POC Glucose 412 H Hemoglobin A1c 13.7 H Calcium POC WB Ioniz Calcium 1.02 L AST Lactate Dehydrogenase 265 H C-Reactive Protein 1.00 H Procalcitonin 0.13 H POC Troponin I Meds: Medications Acetaminophen (Acetaminophen 325 Mg Tablet) 650 mg PO Q6HP PRN; Protocol PRN Reason: Per Pain Protocol/Fever > 101 Hydrocodone Bitart/Acetaminophen (Hydrocodone/Apap 10/325mg Tablet) 1 tab PO 03,08,12,17, [facility]; Protocol Last Admin: 03/08/22 08:03 Dose: 1 tab Albuterol/Ipratropium (Ipratropium/Albuterol 3 Ml Ampul.Neb) 3 ml NEB Q4HRT PRN PRN Reason: Wheezing Atorvastatin Calcium (Atorvastatin 10 Mg Tablet) 5 mg PO HS [facility] Last Admin: 03/07/22 20:28 Dose: 5 mg Baclofen (Baclofen 10 Mg Tablet) 10 mg PO TID [facility] Last Admin: 03/08/22 08:01 Dose: 10 mg Dexamethasone (Dexamethasone 4 Mg Tablet) 6 mg PO DAILY [facility] Last Admin: 03/08/22 08:01 Dose: 6 mg Dextrose (Dextrose 50% 50 Ml Vial) 0 ml IV UD PRN PRN Reason: Per Sliding Scale Diagnostic Test (Pha) (Accu-Chek 1 Each Strip) 1 each FS ACHS [facility] Last Admin: 03/08/22 08:04 Dose: 1 each Docusate Sodium (Docusate Sodium 100 Mg Capsule) 100 mg PO BID [facility] Last Admin: 03/08/22 08:01 Dose: 100 mg Duloxetine HCl (Duloxetine 30 Mg Capsule) 60 mg PO QDAY [facility] Last Admin: 03/08/22 08:03 Dose: 60 mg Enoxaparin Sodium (Enoxaparin 40 Mg/0.4 Ml Syringe) 40 mg SQ DAILY [facility] Last Admin: 03/08/22 08:04 Dose: 40 mg Gabapentin (Gabapentin 300 Mg Capsule) 900 mg PO QID [facility] Last Admin: 03/08/22 08:01 Dose: 900 mg Glucose (Dextrose 31 Gm Oral.Susp) 15 gm PO PRN PRN PRN Reason: Hypoglycemia Guaifenesin (Guaifenesin/Dextromethorphan Oral Brenda) 10 ml PO Q4HP PRN PRN Reason: Cough Hydralazine HCl (Hydralazine 20 Mg/Ml Vial) 10 mg IV Q4-6HP PRN PRN Reason: Hypertension REMDESIVIR 100 mg/ Sodium (Chloride) 250 mls @ 500 mls/hr IV Q24H [facility] Stop: 03/09/22 14:59 Last Infusion: 03/07/22 16:35 Dose: Infused Insulin Glargine (Insulin Glargine, Human 1 Unit/0.01 Ml) 80 unit SQ HS [facility] Last Admin: 03/07/22 20:33 Dose: 80 units Insulin Human Lispro (Insulin Lispro 1 Unit/0.01 Ml Unit) 10 unit SQ TIDCC [facility] Last Admin: 03/08/22 08:03 Dose: 10 units Insulin Human Lispro (Insulin Lispro 1 Unit/0.01 Ml Unit) 0 unit SQ ACHS [facility]; Protocol Last Admin: 03/08/22 08:04 Dose: 2 units Losartan Potassium (Losartan 50 Mg Tablet) 50 mg PO QDAY [facility] Last Admin: 03/08/22 08:01 Dose: 50 mg Ondansetron HCl (Ondansetron 4 Mg/2 Ml Vial) 4 mg IV Q6HP PRN PRN Reason: Nausea And Vomiting Senna (Sennosides 1 Tablet) 2 tab PO [facility] Last Admin: 03/07/22 20:25 Dose: Not Given Sodium Chloride (0.9 % Sodium Chloride 10 Ml Syringe) 10 ml IV Q8 [facility] Last Admin: 03/08/22 06:30 Dose: 10 ml Tramadol HCl (Tramadol 50 Mg Tablet) 50 mg PO 08,12,20 [facility] Last Admin: 03/08/22 08:02 Dose: 50 mg Trazodone HCl (Trazodone Hcl 50 Mg Tablet) 25 mg PO HSP PRN PRN Reason: Insomnia A/P Assessment and plan (1) Hyperglycemia due to type 2 diabetes mellitus: Status: Acute (2) Benign essential hypertension: Status: Chronic (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 CoVID pneumonia: Inpatient med surg telemetry Isolation: airborne and contact Supplemental oxygen titrate to achieve spo2>=92% Remdesivir Dexamethasone Tylenol DuoNEB Robitussin DM Blood culture, no growth to date Inflammatory markers cbc w/ auto diff in the morning to trend WBC 2. Hyperglycemia with T2DM with radiculopathy: HgA1c 13.7 Lantus 80 unit HS Novolog 10 unit TID AC SSI AC HS Accu Chek AC HS Hypoglycemia protocol Diabetic diet Gabapentin [place] Tramadol 3. Syncope: Likely secondary to #1 and #2, treat those respectively, see above Physical therapy Occupational therapy 4. Essential hypertension: Losartan GI ppx: not currently indicated DVT ppx: Lovenox Code status: Full Prognosis: guarded Disposition: Inpatient med surg telemetry; PT OT Time Spent With Patient Time: Total time spent is greater than 50% in coordination of care (as documented) at patient's floor/unit and/or counseling patient: Total time spent with greater than 50% in coordination of care (as documented) at patient's floor/unit and/or counseling patient:: 25 - 35 minutes
[2022-03-08] MEDS: REMDESIVIR 100 MG in 0.9 % SODIUM CHLORIDE 250 ML IV SCH (15:29)
[2022-03-08] MEDS: ATORVASTATIN 10 MG TABLET PO SCH (21:55)
[2022-03-08] MEDS: SENNOSIDES 1 TABLET PO SCH (21:58)
[2022-03-08] MEDS: INSULIN GLARGINE, HUMAN 1 UNIT/0.01 ML SQ SCH (22:03)
[2022-03-08] MEDS ORDERED: SUCRETS LOZENGE PO PRN (22:32)
[2022-03-08] MEDS ORDERED: SUCRETS LOZENGE PO ONE (22:44)
[2022-03-09] MEDS: HYDROcodone/APAP 10/325MG TABLET PO SCH ×5 (03:53→20:57)
[2022-03-09] MEDS: 0.9 % SODIUM CHLORIDE 10 ML SYRINGE IV SCH ×3 (04:02→21:22)
[2022-03-09 07:12] LABS: ALT/SGPT 28 U/L (<40); AST/SGOT 32 U/L (<32); Albumin 3.3 gm/dL (3.2-5.2); Albumin/Globulin Ratio 1.3 (1.0-2.3); Alkaline Phosphatase 54 U/L (39-117); Bilirubin,Direct < 0.2 mg/dL (0-0.3); Bilirubin,Total 0.2 mg/dL (0.1-1.0); Blood Urea Nitrogen 15 mg/dL (8-23); Calcium 7.9 mg/dL (8.6-10.4); Carbon Dioxide 25 mmol/L (22-30); Chloride 102 mmol/L (96-108); Globulin 2.6 gm/dL (2.2-3.7); Glomerular Filtration Rate 99; Glucose 111 mg/dL (70-105); Lactate Dehydrogenase 215 U/L (135-225); Phosphorous 3.1 mg/dL (2.5-4.5); Triglycerides 137 mg/dL (<150); Uric Acid 3.4 mg/dL (2.5-8.0)
[2022-03-09] MEDS: INSULIN LISPRO 1 UNIT/0.01 ML UNIT SQ SCH ×7 (07:42→21:21)
[2022-03-09] MEDS: DULoxetine 30 MG CAPSULE PO SCH (08:13)
[2022-03-09] MEDS: traMADol 50 MG TABLET PO SCH ×3 (08:14→20:57)
[2022-03-09] MEDS: DEXAMETHASONE 4 MG TABLET PO SCH (08:15)
[2022-03-09] MEDS: GABAPENTIN 300 MG CAPSULE PO SCH ×4 (08:15→20:56)
[2022-03-09] MEDS: LOSARTAN 50 MG TABLET PO SCH (08:16)
[2022-03-09] MEDS: DOCUSATE SODIUM 100 MG CAPSULE PO SCH ×2 (08:16→20:56)
[2022-03-09] MEDS: BACLOFEN 10 MG TABLET PO SCH ×3 (08:16→21:20)
[2022-03-09] MEDS: ENOXAPARIN 40 MG/0.4 ML SYRINGE SQ SCH (08:16)
--- NOTE | 2022-03-09 11:44 | Internal Med Progress Note ---
SUBJECTIVE Subjective Patient information: Note initiated : 03/09/22 at 11:43 am Service Date, if different from initiated Date: [] Patient: Aria Kaur 66 y/o F admitted on 03/06/22 for fall. Chief Complaint: [] Principal diagnosis: Failure to thrive Interval history: We spent quite a bit of time discussing disposition. And the importance of going to a rehab as a bridge and then possibly home with home health. The patient seem to be accepting of this idea. The RN was present at the bedside. Constitutional Vitals: Vital Signs Temp Pulse Resp BP Pulse Ox O2 Del Method O2 Flow Rate 97.4 F 51 L 20 139/73 94 3 03/09/22 07:43 03/09/22 07:43 03/09/22 07:43 03/09/22 07:43 03/09/22 08:00 03/09/22 08:00 03/09/22 08:00 Period Temp Pulse Resp BP Sys/Meléndez Pulse Ox O2 Del Method O2 Flow Rate Last 24 Hr 97.4 F-98.2 F 51-66 14-24 134-160/62-79 90-96 Nasal Cannula- Room Air 2-3 Intake and Output 03/08/22 03/09/22 03/09/22 21:59 05:59 13:59 Intake Total 650 300 Output Total 1550 700 Balance -900 -400 Weight 82.055 kg Intake & Output: Intake & Output 03/08/22 03/09/22 03/09/22 21:59 05:59 13:59 Intake Total 650 300 Output Total 1550 700 Balance -900 -400 Weight 82.055 kg Intake: IV 250 Veklury 100 mg In Sodium 250 Chloride 0.9% 250 ml @ 500 mls/ hr IV Q24H [facility] Rx#:[id number] Oral 400 300 Output: Void Amount 1550 700 Other: Meal Dinner Percent of Meal Consumed 100% Urine Appearance Clear Clear Urine Color Yellow Bright Yellow Urine Odor Normal Normal Head Head exam: Present atraumatic and normal inspection Eye Eye exam: Present normal appearance ENT ENT exam: Present mucous membranes moist, normal exam and normal external ear exam Neck Neck exam: Present normal inspection Respiratory Respiratory exam: Present normal respiratory exam Cardiovascular Cardiovascular exam: Present normal rate and rhythm GI/Abdominal GI/Abdominal exam: Present normal bowel sounds Back Exam Back exam: Present normal inspection Neurological Exam Neurological exam: Present alert and oriented X3 Skin Skin exam: Present intact and warm OBJ DATA Labs CBC & Chem 7: 03/07/22 06:21 03/09/22 05:27 Labs: Abnormal Lab Results 03/09/22 03/07/22 03/07/22 05:27 06:21 06:21 Lymph # (Auto) 1.21 L POC Sodium Sodium 129 L POC Chloride Chloride 95 L Creatinine 0.5 L Glucose 111 H 346 H POC Glucose Hemoglobin A1c Calcium 7.9 L 7.7 L POC WB Ioniz Calcium AST 32 H 32 H Lactate Dehydrogenase C-Reactive Protein Procalcitonin POC Troponin I 03/06/22 03/06/22 03/06/22 16:04 16:02 15:58 Lymph # (Auto) POC Sodium 131 L Sodium POC Chloride 92 L Chloride Creatinine Glucose POC Glucose 412 H Hemoglobin A1c Calcium POC WB Ioniz Calcium 1.02 L AST Lactate Dehydrogenase C-Reactive Protein Procalcitonin 0.13 H POC Troponin I 0 L 03/06/22 15:58 Lymph # (Auto) POC Sodium Sodium POC Chloride Chloride Creatinine Glucose POC Glucose Hemoglobin A1c 13.7 H Calcium POC WB Ioniz Calcium AST Lactate Dehydrogenase 265 H C-Reactive Protein 1.00 H Procalcitonin POC Troponin I Meds: Medications Acetaminophen (Acetaminophen 325 Mg Tablet) 650 mg PO Q6HP PRN; Protocol PRN Reason: Per Pain Protocol/Fever > 101 Hydrocodone Bitart/Acetaminophen (Hydrocodone/Apap 10/325mg Tablet) 1 tab PO 03,08,,, [facility]; Protocol Last Admin: 03/09/22 08:16 Dose: 1 tab Albuterol/Ipratropium (Ipratropium/Albuterol 3 Ml Ampul.Neb) 3 ml NEB Q4HRT PRN PRN Reason: Wheezing Atorvastatin Calcium (Atorvastatin 10 Mg Tablet) 5 mg PO HS JOANNE Last Admin: 03/08/22 21:55 Dose: 5 mg Baclofen (Baclofen 10 Mg Tablet) 10 mg PO TID JOANNE Last Admin: 03/09/22 08:16 Dose: 10 mg Dexamethasone (Dexamethasone 4 Mg Tablet) 6 mg PO DAILY JOANNE Last Admin: 03/09/22 08:15 Dose: 6 mg Dextrose (Dextrose 50% 50 Ml Vial) 0 ml IV UD PRN PRN Reason: Per Sliding Scale Diagnostic Test (Pha) (Accu-Chek 1 Each Strip) 1 each FS ACHS [facility] Last Admin: 03/09/22 11:40 Dose: 1 each Docusate Sodium (Docusate Sodium 100 Mg Capsule) 100 mg PO BID [facility] Last Admin: 03/09/22 08:16 Dose: Not Given Duloxetine HCl (Duloxetine 30 Mg Capsule) 60 mg PO QDAY [facility] Last Admin: 03/09/22 08:13 Dose: 60 mg Enoxaparin Sodium (Enoxaparin 40 Mg/0.4 Ml Syringe) 40 mg SQ DAILY [facility] Last Admin: 03/09/22 08:16 Dose: 40 mg Gabapentin (Gabapentin 300 Mg Capsule) 900 mg PO QID [facility] Last Admin: 03/09/22 08:15 Dose: 900 mg Glucose (Dextrose 31 Gm Oral.Susp) 15 gm PO PRN PRN PRN Reason: Hypoglycemia Guaifenesin (Guaifenesin/Dextromethorphan Oral Brenda) 10 ml PO Q4HP PRN PRN Reason: Cough Hydralazine HCl (Hydralazine 20 Mg/Ml Vial) 10 mg IV Q4-6HP PRN PRN Reason: Hypertension REMDESIVIR 100 mg/ Sodium (Chloride) 250 mls @ 500 mls/hr IV Q24H [facility] Stop: 03/10/22 09:29 Insulin Glargine (Insulin Glargine, Human 1 Unit/0.01 Ml) 80 unit SQ [facility] Last Admin: 03/08/22 22:03 Dose: 80 units Insulin Human Lispro (Insulin Lispro 1 Unit/0.01 Ml Unit) 10 unit SQ [facility] Last Admin: 03/09/22 08:13 Dose: 10 units Insulin Human Lispro (Insulin Lispro 1 Unit/0.01 Ml Unit) 0 unit SQ [facility]; Protocol Last Admin: 03/09/22 07:42 Dose: Not Given Losartan Potassium (Losartan 50 Mg Tablet) 50 mg PO QDAY [facility] Last Admin: 03/09/22 08:16 Dose: 50 mg Ondansetron HCl (Ondansetron 4 Mg/2 Ml Vial) 4 mg IV Q6HP PRN PRN Reason: Nausea And Vomiting Senna (Sennosides 1 Tablet) 2 tab PO [facility] Last Admin: 03/08/22 21:58 Dose: Not Given Sodium Chloride (0.9 % Sodium Chloride 10 Ml Syringe) 10 ml IV Q8 [facility] Last Admin: 03/09/22 04:02 Dose: 10 ml Tramadol HCl (Tramadol 50 Mg Tablet) 50 mg PO 08,12,20 [facility] Last Admin: 03/09/22 08:14 Dose: 50 mg Trazodone HCl (Trazodone Hcl 50 Mg Tablet) 25 mg PO HSP PRN PRN Reason: Insomnia A/P Assessment and plan (1) Hyperglycemia due to type 2 diabetes mellitus: Status: Acute (2) Benign essential hypertension: Status: Chronic (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 CoVID pneumonia: Inpatient med surg telemetry Isolation: airborne and contact Supplemental oxygen titrate to achieve spo2>=92% Remdesivir Dexamethasone Tylenol DuoNEB Robitussin DM Blood culture, no growth to date Inflammatory markers cbc w/ auto diff in the morning to trend WBC 2. Hyperglycemia with T2DM with radiculopathy: HgA1c 13.7 Lantus 80 unit HS Novolog 10 unit TID AC SSI AC HS Accu Chek AC HS Hypoglycemia protocol Diabetic diet Gabapentin [place] Tramadol 3. Syncope: Likely secondary to #1 and #2, treat those respectively, see above Physical therapy Occupational therapy 4. Essential hypertension: Losartan Time Spent With Patient Time: Total time spent is greater than 50% in coordination of care (as documented) at patient's floor/unit and/or counseling patient: Total time spent with greater than 50% in coordination of care (as documented) at patient's floor/unit and/or counseling patient:: 25 - 35 minutes
[2022-03-09] MEDS: REMDESIVIR 100 MG in 0.9 % SODIUM CHLORIDE 250 ML IV SCH (12:27)
[2022-03-09] MEDS: ATORVASTATIN 10 MG TABLET PO SCH (21:20)
[2022-03-09] MEDS: INSULIN GLARGINE, HUMAN 1 UNIT/0.01 ML SQ SCH (21:21)
[2022-03-09] MEDS: SENNOSIDES 1 TABLET PO SCH (21:21)
[2022-03-10] MEDS: HYDROcodone/APAP 10/325MG TABLET PO SCH ×3 (03:59→12:18)
[2022-03-10] MEDS: 0.9 % SODIUM CHLORIDE 10 ML SYRINGE IV SCH ×2 (04:03→15:11)
[2022-03-10] MEDS: GABAPENTIN 300 MG CAPSULE PO SCH ×2 (08:29→12:17)
[2022-03-10] MEDS: traMADol 50 MG TABLET PO SCH ×2 (08:29→12:17)
[2022-03-10] MEDS: DULoxetine 30 MG CAPSULE PO SCH (08:30)
[2022-03-10] MEDS: LOSARTAN 50 MG TABLET PO SCH (08:30)
[2022-03-10] MEDS: BACLOFEN 10 MG TABLET PO SCH ×2 (08:30→15:11)
[2022-03-10] MEDS: DEXAMETHASONE 4 MG TABLET PO SCH (08:30)
[2022-03-10] MEDS: DOCUSATE SODIUM 100 MG CAPSULE PO SCH (08:33)
[2022-03-10] MEDS: ENOXAPARIN 40 MG/0.4 ML SYRINGE SQ SCH (08:33)
[2022-03-10] MEDS: INSULIN LISPRO 1 UNIT/0.01 ML UNIT SQ SCH ×4 (09:42→12:19)
[2022-03-10] MEDS: REMDESIVIR 100 MG in 0.9 % SODIUM CHLORIDE 250 ML IV SCH (11:13)
--- NOTE | 2022-03-10 12:08 | Discharge Summary ---
Discharge Provider Provider IMPORTANT FOLLOW-UP INFORMATION FOR PCP: Patient information: Note initiated : 03/10/22 at 12:07 pm Service Date, if different from initiated Date: [] Patient: Aria Kaur 66 y/o F admitted on 03/06/22 for fall. Chief Complaint: [LOC] Date of admission: 03/06/22 20:12 Discharge date: 03/10/22 Primary care physician: Maykel Colón Consults: 03/06/22 Consult to Physician [CONS] Stat Comment: Consulting Provider: Henry Laboy Reason For Exam: Physician to Consult Attending physician on discharge: [facility] COURSE Hospital Course Hospital course: When I took over the care of this patient, she was doing quite well. She had a syncopal event at home and on arrival she was hypoxemic and hyperglycemic. The patient is legally blind and has no caregiver support at home. There were serious concerns about her home safety and her ability to look after herself. Initial investigations revealed she was COVID-19 positive. The patient was started on remdesivir and dexamethasone which she is now completed. Her blood sugars were elevated in the setting of steroid use but have now been under control. It is unclear if the patient has been properly giving herself insulin due to her issues with visual acuity. She was found to have a hemoglobin A1c of 13.7. She has been transferred today as a swing bed and is awaiting discharge to custodial facility. Discharge diagnosis: Syncope, COVID-19, hyperglycemia, failure to thrive Time Spent with Patient Time attestation: Total time spent providing and/or coordinating discharge services: Time spent: Greater than 30 minutes EXAM Constitutional Vitals: Temp Pulse Resp BP Pulse Ox O2 Del Method O2 Flow Rate 97.9 F 53 L 16 142/79 96 4 03/10/22 11:05 03/10/22 11:05 03/10/22 11:05 03/10/22 11:05 03/10/22 11:05 03/10/22 11:05 03/10/22 11:05 General appearance: average body habitus Head Head exam: Present atraumatic, normal inspection and normocephalic Eye Eye exam: Present EOMI, normal appearance and PERRL; Absent conjunctival injection ENT ENT exam: Present normal exam; Absent mucous membranes dry Neck Neck exam: Present full ROM; Absent lymphadenopathy Respiratory Respiratory exam: Present normal respiratory exam and CTAB; Absent decreased breath sounds, respiratory distress or wheezes Cardiovascular Cardiovascular exam: Present normal rate and rhythm and RRR; Absent JVD GI/Abdominal GI/Abdominal exam: Present normal bowel sounds and soft; Absent diminished bowel sounds, distended, guarding, mass, rebound or tenderness Neurological Exam Neurological exam: Present alert, CN II-XII intact and oriented X3 Psychiatric Psychiatric exam: Present normal affect and normal mood Skin Skin exam: Present intact and warm; Absent erythema, pallor, petechiae or rash Discharge Data Data Completed and Pending Labs on day of discharge: Preliminary micro results at discharge 03/06/22 20:47 Blood Culture - Preliminary Blood 03/06/22 20:43 Blood Culture - Preliminary Blood Discharge Plan Patient/Caregiver Discharge Instructions Activity: as per physical therapy Prescriptions: No Action hydrocodone-acetaminophen 10-325 mg tablet 1 tab PO 5XD tramadol 50 mg tablet 1 tab PO TID baclofen 10 mg tablet 1 tab PO TID gabapentin 300 mg capsule 900 mg PO QID pravastatin 20 mg tablet 1 tab PO HS insulin aspart U-100 [Novolog Flexpen U-100 Insulin] 100 unit/mL (3 mL) insulin pen 10 unit subcut TID duloxetine 60 mg capsule,delayed release(DR/EC) 1 cap PO QDAY Levemir FlexTouch U-100 Insuln 100 unit/mL (3 mL) insulin pen 80 unit subcut HS losartan 50 mg tablet 1 tab PO QDAY Follow Up Plan Follow up with: Maykel Colón [Primary Care Provider] - Patient Disposition: Xfer As Swing Bed ([facility]) Prognosis: Fair Rehab Potential: Good I certify that the patient requires SNF services: Yes Overall status at discharge: patient is progressing back to baseline Discharge Orders: Discharge Order (Routine); Ordered 03/10/22 Ordered By: Augustus Quiros
== END 2022-03-10 12:08 | disposition swing bed (61) | DRG 177 ==
LOC: ED 15:37 → MEDSUR 20:12
PROVIDERS: ADMIT Internal Medicine; ATTEND Student in an Organized Health Care Education/Training Program